=== PATIENT | female | born 1955 | race Caucasian/White ===

== ENCOUNTER 2017-02-12 16:19 | Emergency (ER) | payer OTHER ==
[~2017-02-12] VITALS: Ht 157.5 cm; Wt 92.7 kg
[~2017-02-12 16:19] MED LIST: ADVAIR 500-501 EACH IH; ADVAIR 500/501 DISK IH; AMITIZA24 MICROGR PO; ASPIR 8181 M1 PO; BACTRIM,SEPT1 TABLET PO; BENTYL20 MG PO; CARDIZEM CD,CA240 MG PO; CARDIZEM CD120 MG PO; CARDIZEM60 MG PO; CARTIA XT240 MG PO; CHEWABLE-VITE1 EAC1 PO; CLARITIN10 M3 PO; CLONAZEPAM0.5 MG PO; COREG3.125 M1 PO; Cipro PO; DAILY VITAMIN1 EAC8 PO; DAILY VITE1 EAC1 PO; DALIRESP500 MCG PO; DILTIAZEM 24HR120 MG PO; DILTIAZEM 24HR240 MG PO; ENDOCET 5-3251 EACH PO; FLAGYL500 MG PO; FLEXERIL10 MG PO; FLONASE16 G1 BOTH NARES; FLOVENT DISKUS1 DIS2 IH; Flagyl PO; Flora-Q,Risaquad PO; HYDROCHLOROTHIA25 MG PO; HYDRODIURIL,O12.5 M1 PO; HYDROXYZINE HCL25 MG PO; K-DUR10 MEQ PO; KLONOPIN0.5 M1 PO; LEVAQUIN250 MG PO; LEVAQUIN500 MG PO; LEVAQUIN750 MG PO; LEVOFLOXACIN750 MG PO; LEXAPRO5 MG PO; LINZESS145 MCG PO; LINZESS290 MCG PO; LISINOPRIL20 MG PO; LO-DOSE ASPIRIN81 M1 PO; LOMOTIL TABLET1 EACH PO; LOSARTAN POTASS25 MG PO; LOW DOSE ASPIRI81 M1 PO; METRONIDAZOLE500 MG PO; MIRALAX17 GM PO; MIRALAX255 GM PO; MYCOSTATIN 100,60 ML PO; NEXIUM20 MG PO; NEXIUM40 MG PO; NICOTINE PATCH1 EAC2 TD; NICOTINE PATCH1 EACH TD; NORCO 5/3251 TABLET PO; NYSTATIN100000 UN1 PO; PERCOCET 5/31 TABLET PO; POTASSIUM CHLO10 ME3 PO; PRAVACHOL40 MG PO; PRAVASTATIN SOD40 MG PO; PREDNISONE10 MG PO; PREDNISONE20 MG PO; PRINIVIL20 MG PO; PROTONIX40 MG PO; PROVENTIL,2.5 MG/3 M IH; PROVENTIL,200 INHALA IH; Percocet 5/325,Endoc PO; Protonix PO; SEROQUEL XR200 MG PO; SEROQUEL100 MG PO; SPIRIVA1 INHALATI IH; TRAMADOL HCL50 MG PO; WELLBUTRIN SR100 MG PO; XOPENEX HF200 INHALA IH; XOPENEX HFA15 GM IH; ZYRTEC10 M3 PO
[2017-02-12 18:45] VITALS: BP 137/65
== END 2017-02-12 18:45 | disposition home or self-care (01) ==
LOC: EME 16:19
PROC: 0HQDXZZ Repair Right Lower Arm Skin, External Approach (ICD-10-PCS; principal; 2017-02-12)
PROC: 3E0234Z Introduction of Serum, Toxoid and Vaccine into Muscle, Percutaneous Approach (ICD-10-PCS; 2017-02-12)
DX: S51.811A Laceration without foreign body of right forearm, initial encounter (principal); W01.118A Fall on same level from slipping, tripping and stumbling with subsequent striking against other sharp object, initial encounter; Z23 Encounter for immunization; Z79.82 Long term (current) use of aspirin; I10 Essential (primary) hypertension; J44.9 Chronic obstructive pulmonary disease, unspecified; J45.909 Unspecified asthma, uncomplicated; E78.5 Hyperlipidemia, unspecified; Z95.4 Presence of other heart-valve replacement; Z99.81 Dependence on supplemental oxygen; Z87.891 Personal history of nicotine dependence
CPT/HCPCS: 99281; 99285